=== PATIENT | male | born 1935 | race African-American/Black ===

== ENCOUNTER 2021-08-22 11:35 | Inpatient (IN) | payer MEDICARE ==
[~2021-08-22] VITALS: Ht 182.9 cm; Wt 80.4 kg
[2021-08-22 12:47] LABS: CHLORIDE 108 mEq/L (98-107)
[2021-08-22 13:54] LABS: HEMATOCRIT. 35.2 % (42.0-52.0); HEMOGLOBIN. 11.7 g/dL (14.0-18.0); MEAN CORPUSCULAR HEMOGLOBIN 29.7 pg (28.0-32.0); MEAN CORPUSCULAR VOLUME 88.9 fL (80.0-94.0); MEAN PLATELET VOLUME 9.5 fl (7.4-10.4); PLATELET 183 x1000/uL (130-400); RED BLOOD CELL COUNT 3.96 mill/uL (4.7-6.1); RED CELL DISTRIBUTION WIDTH 14.1 % (11.6-14.6)
[2021-08-22 14:22] LABS: PLATELET ESTIMATE NORMAL
[2021-08-22 15:34] LABS: CLARITY URINE CLEAR (CLEAR); COLOR URINE YELLOW (YELLOW); KETONES URINE TRACE (NEGATIVE); LEUKOCYTE ESTERASE URINE NEGATIVE (NEGATIVE); NITRITE URINE NEGATIVE (NEGATIVE); OCCULT BLOOD URINE NEGATIVE (NEGATIVE); PH URINE 6.5 (4.5-8.0); PROTEIN URINE TRACE (NEGATIVE); SPECIFIC GRAVITY URINE 1.009 (1.005-1.030); UROBILINOGEN URINE 0.2 E.U./dL (0.2-1.0)
[2021-08-22] MEDS ORDERED: ONDANSETRON HCL 4MG/2ML INJ IV PRN (17:45)
[2021-08-22] MEDS ORDERED: IPRATROPIUM/ALBUTEROL 0.5-3(2.5)MG/3ML NEB HHN PRN (17:45)
[2021-08-22] MEDS ORDERED: GUAIFENESIN 200MG/10ML SUGAR FREE UDC PO PRN (17:45)
[2021-08-22] MEDS ORDERED: ACETAMINOPHEN 325MG TABLET PO PRN (17:45)
[2021-08-22] MEDS ORDERED: CLONIDINE 0.1MG TABLET PO PRN (17:45)
[2021-08-22] MEDS ORDERED: DOCUSATE SODIUM 100MG CAPSULE PO PRN (17:45)
[2021-08-22] MEDS ORDERED: ENOXAPARIN 40MG/0.4ML SYR SUBCUT SCH (17:45)
[2021-08-22] MEDS: ENOXAPARIN 30MG/0.3ML SYR SUBCUT SCH (18:19)
[2021-08-22] MEDS: ATORVASTATIN CALCIUM 10MG TABLET PO SCH (21:32)
[2021-08-23] MEDS: ASPIRIN 81MG TABLET PO SCH (09:57)
[2021-08-23 10:22] VITALS: BP 137/112
[2021-08-23] MEDS ORDERED: ATOR10TA69 MT (11:38)
[2021-08-23] MEDS ORDERED: CYAN-33 MT (11:38)
[2021-08-23] MEDS ORDERED: LEVO25TA7 MT (11:38)
[2021-08-23] MEDS ORDERED: ASPI-1497 MT (11:38)
[2021-08-23 12:00] VITALS: BP 137/92
[2021-08-23 14:16] LABS: BASOPHILS % 0.8 % (0.0-2.0); EOSINOPHILS % 1.3 % (0.0-5.0); HEMATOCRIT. 40.4 % (42.0-52.0); HEMOGLOBIN. 13.1 g/dL (14.0-18.0); LYMPHOCYTES % 7.1 % (20.0-50.0); MEAN CORPUSCULAR HEMOGLOBIN 28.6 pg (28.0-32.0); MEAN CORPUSCULAR VOLUME 88.4 fL (80.0-94.0); MONOCYTES % 6.6 % (2.0-8.0); NEUTROPHILS % 84.2 % (40.0-76.0); PLATELET 209 x1000/uL (130-400); RED BLOOD CELL COUNT 4.56 mill/uL (4.7-6.1); RED CELL DISTRIBUTION WIDTH 14.5 % (11.6-14.6)
[2021-08-23 16:00] VITALS: BP 149/77
[2021-08-23] MEDS: LEVOTHYROXINE SODIUM 100MCG TABLET PO SCH (16:42)
[2021-08-23] MEDS: ENOXAPARIN 30MG/0.3ML SYR SUBCUT SCH (17:49)
[2021-08-23 20:00] VITALS: BP 147/77
[2021-08-23] MEDS: ATORVASTATIN CALCIUM 10MG TABLET PO SCH (23:04)
[2021-08-24] VITALS (7 sets, daily range): BP systolic 105–153; BP diastolic 65–94
[2021-08-24 05:54] LABS: BASOPHILS % 0.9 % (0.0-2.0); EOSINOPHILS % 4.5 % (0.0-5.0); HEMATOCRIT. 37.6 % (42.0-52.0); HEMOGLOBIN. 12.5 g/dL (14.0-18.0); LYMPHOCYTES % 12.3 % (20.0-50.0); MEAN CORPUSCULAR HEMOGLOBIN 29.1 pg (28.0-32.0); MEAN CORPUSCULAR VOLUME 87.4 fL (80.0-94.0); MEAN PLATELET VOLUME 9.5 fl (7.4-10.4); MONOCYTES % 11.4 % (2.0-8.0); NEUTROPHILS % 70.9 % (40.0-76.0); PLATELET 181 x1000/uL (130-400); RED CELL DISTRIBUTION WIDTH 14.3 % (11.6-14.6)
[2021-08-24] MEDS: LEVOTHYROXINE SODIUM 100MCG TABLET PO SCH (05:56)
[2021-08-24 06:34] LABS: CHLORIDE 108 mEq/L (98-107)
[2021-08-24] MEDS: ASPIRIN 81MG TABLET PO SCH (08:32)
[2021-08-24 15:06] LABS: CREATINE KINASE 968 IU/L (39-308)
[2021-08-24] MEDS: ENOXAPARIN 30MG/0.3ML SYR SUBCUT SCH (19:05)
[2021-08-24] MEDS: ATORVASTATIN CALCIUM 10MG TABLET PO SCH (21:42)
[2021-08-24] MEDS: METOPROLOL TARTRATE 25MG TABLET PO SCH (21:43)
[2021-08-24] MEDS: LACTATED RINGERS 1,000 ML IV SCH (21:45)
[2021-08-25] VITALS: BP 146/77
[2021-08-25 04:00] VITALS: BP 150/79
[2021-08-25] MEDS: LEVOTHYROXINE SODIUM 100MCG TABLET PO SCH (06:20)
[2021-08-25] MEDS: LACTATED RINGERS 1,000 ML IV SCH (06:22)
[2021-08-25 08:00] VITALS: BP 135/91
[2021-08-25] MEDS: ASPIRIN 81MG TABLET PO SCH (08:50)
[2021-08-25] MEDS: METOPROLOL TARTRATE 25MG TABLET PO SCH (08:50)
[2021-08-25 09:16] LABS: BASOPHILS % 1.1 % (0.0-2.0); EOSINOPHILS % 4.4 % (0.0-5.0); HEMATOCRIT. 36.9 % (42.0-52.0); HEMOGLOBIN. 12.4 g/dL (14.0-18.0); LYMPHOCYTES % 8.2 % (20.0-50.0); MEAN CORPUSCULAR HEMOGLOBIN 29.5 pg (28.0-32.0); MEAN CORPUSCULAR VOLUME 87.9 fL (80.0-94.0); MEAN PLATELET VOLUME 9.3 fl (7.4-10.4); MONOCYTES % 8.9 % (2.0-8.0); NEUTROPHILS % 77.4 % (40.0-76.0); PLATELET 170 x1000/uL (130-400); RED CELL DISTRIBUTION WIDTH 14.2 % (11.6-14.6)
[2021-08-25 09:26] LABS: PROTHROMBIN TIME 10.3 sec (9.6-11.0)
[2021-08-25] MEDS ORDERED: REGADENOSON 0.4 MG/5 ML IV NR (09:45)
[2021-08-25 12:00] VITALS: BP 158/80
[2021-08-25] MEDS ORDERED: REGADENOSON 0.4 MG/5 ML IV ONE (14:26)
[2021-08-25 16:00] VITALS: BP 150/74
[2021-08-25 16:11] VITALS: BP 150/74
[2021-08-25] MEDS ORDERED: ENOXAPARIN 40MG/0.4ML SYR SUBCUT SCH (18:00)
== END 2021-08-25 18:14 | disposition home or self-care (01) | DRG 73 ==
LOC: ER 11:35 → MICUSO 17:32 → EDBEDREQ 17:33 → 8WST 08-23 10:26
PROVIDERS: ADMIT Internal Medicine; ATTEND Internal Medicine
DX: G90.8 Other disorders of autonomic nervous system (principal); N17.0 Acute kidney failure with tubular necrosis; M62.82 Rhabdomyolysis; E78.5 Hyperlipidemia, unspecified; I50.9 Heart failure, unspecified; F17.200 Nicotine dependence, unspecified, uncomplicated; I11.0 Hypertensive heart disease with heart failure; R09.02 Hypoxemia; I45.10 Unspecified right bundle-branch block; D64.9 Anemia, unspecified; Z20.822 Contact with and (suspected) exposure to COVID-19; Z95.0 Presence of cardiac pacemaker; E89.0 Postprocedural hypothyroidism
CPT/HCPCS: 36415; 71045; 78452; 80048; 80053; 80061; 81003; 82550; 83605; 83735; 83880; 84145; 84443; 84484; 85025; 87426; 93005; 93017; 93306; 93880; 99285; A9500; J1650; J2785; J7120